=== PATIENT | male | born 1955 | race Caucasian/White ===

== ENCOUNTER → 2019-10-30 | Outpatient (CLI) | payer OTHER ==
--- NOTE | 2019-10-30 18:32 | US ---
EXAMINATION TYPE: US scrotum with doppler. Grayscale and color Doppler Duplex imaging performed of t he scrotum. 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 Palpable lump right testicle x 1 month EXAM MEASUREMENTS: TESTICLES: Right Testicle: 4.2 x 2.5 x 3.1 cm Left Testicle: 3.9 x 2.5 x 2.8 cm EPIDIDYMIS HEAD: Right Epididymis: 1.2 x 1.4 x 1.7 cm Left Epididymis: 0.8 x 0.9 x 1.1 cm Doppler performed to assess for testicular vascularity; bilateral color flow and waveforms are seen. There is no evidence of testicular torsion. Presence of hydroceles: right 2.8cm, left 2.4cm Presence of varicoceles: prominent vessels posterior and superior to left testicle Right epididymis: 1.0 x 0.5 x 0.9cm cyst seen at patient's palpable area Testicular echotexture is homogenous and symmetric IMPRESSION: Right epididymal cyst corresponds to patient's palpable abnormality, there is a right and left small hydrocele
== END | disposition home or self-care (01) ==
LOC: RADUSWWP 16:34
PROVIDERS: ATTEND Family Medicine
DX: D29.4 Benign neoplasm of scrotum (principal); N50.3 Cyst of epididymis; N43.3 Hydrocele, unspecified
CPT/HCPCS: 76870; 93975

== ENCOUNTER → 2019-11-21 | Outpatient (CLI) | payer OTHER ==
--- NOTE | 2019-11-21 23:28 | XR ---
EXAMINATION TYPE: XR chest 2V DATE OF EXAM: 11/21/2019 CLINICAL HISTORY: Hypertension, smoker TECHNIQUE: Frontal and lateral views of the chest are obtained. COMPARISON: None FINDINGS: The cardiomediastinal silhouette is within normal limits for size. Pulmonary vasculature i s normal. There is no focal air space opacity, pleural effusion, or pneumothorax seen. The osseous st ructures are intact. IMPRESSION: No acute cardiopulmonary process.
== END | disposition home or self-care (01) ==
LOC: RADXRYALE 14:59
PROVIDERS: ATTEND Physician Assistant Medical
DX: I10 Essential (primary) hypertension (principal); F17.210 Nicotine dependence, cigarettes, uncomplicated
CPT/HCPCS: 71046

== ENCOUNTER → 2020-06-05 | Outpatient (CLI) | payer OTHER ==
--- NOTE | 2020-06-05 21:27 | CT ---
EXAMINATION TYPE: CT urogram wo/w con DATE OF EXAM: 06/05/2020 COMPARISON: None HISTORY: Microscopic hematuria. CT DLP: 1941.6 mGycm, Automated Exposure Control for Dose Reduction was Utilized. CONTRAST: CT scan of the abdomen and pelvis is performed with oral and without and with IV Contrast, patient in jected with 100 mL of Isovue M300. FINDINGS: There is an umbilical hernia containing fat. LUNG BASES: No significant abnormality is appreciated. LIVER/GB: Posterior right lobe of the liver shows a hypoechoic density which shows gradual stippled e nhancement over time measuring approximately 2.3 cm which I suspect represents hemangioma. Gallbladde r is unremarkable. PANCREAS: No significant abnormality is seen. SPLEEN: No significant abnormality is seen. ADRENALS: Some mild prominence of the left adrenal gland may be indicative of underlying hyperplasia, there may be an associated adenoma KIDNEYS: Left kidney shows a punctate nonobstructive calculus at the lower pole anteriorly measuring only 3 mm, probable cortical cyst is also present at the lower po le left kidney measuring approximately 8 to 9 mm. Cortical cyst is present at the midpole the right k idney measuring approximately 12 mm. There is an extrarenal pelvis on the left the kidneys enhance sy mmetrically. There is no evident obstruction. Right kidney measures approximately 11.6 cm, left kidne y measures approximately 13 cm. The ureters show normal course and caliber but are not entirely enhan juanjo. BOWEL: No significant abnormality is seen. PROSTATE/SEMINAL VESICLES: There is a slight inferior impression on the urinary bladder due to enlar ged prostate LYMPH NODES: No greater than 1cm abdominal or pelvic lymph nodes are appreciated. OSSEOUS STRUCTURES: Degenerative disc changes are present in the visualized spine, there is marked sc lerosis, loss of disc space, associated spondylosis especially at L2-3 greater towards the right of m idline, is a slight spinal curvature. Facet arthropathy changes are present at the lumbosacral juncti on. OTHER: No significant additional abnormality is seen. IMPRESSION: Nonobstructive left nephrolithiasis. Possible hemangioma within the liver. Probable xander ical cysts associated with the kidneys. Prostatic enlargement. Limitations as described. Additional f indings above.
== END ==
LOC: RADCTMAIN 15:36
PROVIDERS: ATTEND Urology
DX: N20.0 Calculus of kidney (principal); N40.0 Benign prostatic hyperplasia without lower urinary tract symptoms; R93.2 Abnormal findings on diagnostic imaging of liver and biliary tract
CPT/HCPCS: 74178; 74400; Q9967

== ENCOUNTER → 2023-02-24 | Outpatient (CLI) | payer MEDICARE ==
--- NOTE | 2023-02-24 09:27 | CTL ---
EXAMINATION TYPE: CT Low Dose Lung DATE OF EXAM ORDERED: 02/24/2023 HISTORY: 67-year-old male Z87.891 PERSONAL HISTORY OF NICOTINE DEPENDENCE. Current smoker with 50 pac k-year history. Lung cancer screening CT DLP: 109.[address] CTDI: 3.0 mGy Automated exposure control for dose reduction was used. SCREENING VISIT: Baseline COMPARISON: None TECHNIQUE: Low dose computed tomography scan was performed through the chest without contrast with co jhon and sagittal reconstructions. CT DIAGNOSTIC QUALITY: Satisfactory FINDINGS: Heart normal size without pericardial effusion. Mild three-vessel coronary calcifications. Aorta normal caliber with conventional arch vessel branching anatomy. Mild scattered atherosclerotic aortic calcifications. No thoracic lymph adenopathy by size criteria. Mildly enlarged caliber to the main right and left pulmonary arteries up to 2.8 cm existing underlyin g pulmonary arterial hypertension. * Numerous scattered additional calcified granulomas are present throughout the lungs. * A few pulmonary nodules measuring 4 mm and smaller are also present. * 6 mm subpleural pulmonary nodule right middle lobe, axial image 178. There is centrilobular groundglass nodularity in the upper lungs. Mild diffuse bronchial wall thicken ing. Minimal emphysematous changes in the upper lungs. Mild biapical pleural-parenchymal scarring. Visualized upper abdomen shows diffuse low-density thickening of the left adrenal gland. A couple sma ll splenules are noted. Bones: Mild degenerative disc disease throughout. IMPRESSION: 1. LungRADS 3, probably benign. A 6 mm pulmonary nodule right middle lobe on baseline screening. 2. Additional scattered tiny nodules measuring up to 4 mm on baseline screening. Additional changes c ompatible with prior granulomatous disease. 3. COPD with minimal emphysema. Centrilobular groundglass nodules in the upper lungs can be seen with smoking associated respiratory bronchiolitis. Recommend smoking cessation. CT LUNG RAD AND CT CHEST RECOMMENDATION: Lung-Rad 3 Probably Benign: 6 month follow-up LDCT. S Modifier (other clinically significant findings): None
== END | disposition home or self-care (01) ==
LOC: RADCTMAIN 07:52
PROVIDERS: ATTEND Family Medicine
DX: Z12.2 Encounter for screening for malignant neoplasm of respiratory organs (principal); F17.210 Nicotine dependence, cigarettes, uncomplicated; J43.9 Emphysema, unspecified; J44.9 Chronic obstructive pulmonary disease, unspecified; R91.8 Other nonspecific abnormal finding of lung field
CPT/HCPCS: 71271

== ENCOUNTER → 2023-09-22 | Outpatient (CLI) | payer MEDICARE ==
--- NOTE | 2023-09-22 11:58 | CTL ---
EXAMINATION TYPE: CT Low Dose Lung DATE OF EXAM ORDERED: 09/22/2023 HISTORY: . Low Dose CT Lung Screening CT DLP: 114.[address] CTDI: 3.2 mGy IV CONTRAST USED: None. SCREENING VISIT: First visit COMPARISON: 02/25/2020 TECHNIQUE: Low dose computed tomography scan was performed through the chest at 1 millimeter thick se ctions and reconstructed images in the coronal plane at [address] DIAGNOSTIC QUALITY: Satisfactory FINDINGS: LUNG NODULES: 5 mm pleural-based right middle lobe pulmonary nodule image 186. Small pleural-based gr anuloma image 187. Small granuloma calcified left lower lobe 228 measuring 4 mm. LUNGS: COPD: Severity: Mild Fibrosis: Severity:None Lymph nodes: None Other findings: None RIGHT PLEURAL SPACE: Effusion: None Calcification: None Thickening: None Pneumothorax: None LEFT PLEURAL SPACE: Effusion: None Calcification: None Thickening: None Pneumothorax: None HEART: Heart Size: Mildly enlarged Coronary calcification: Mild Pericardial effusion: None OTHER FINDINGS: Upper abdomen: No significant abnormality Bony thorax: Degenerative changes Supraclavicular region: No significant abnormalityOther: No significant abnormalityI IMPRESSION: No clinically significant nodules greater than 6 mm. Findings are likely related to remot e granulomatous disease. FOLLOW UP CT CHEST RECOMMENDATION: Follow-up screening in one year CT LUNG RAD: LUNG RAD CATEGORY 2 benign appearance and/or behavior
== END | disposition home or self-care (01) ==
LOC: RADCTMAIN 11:15
PROVIDERS: ATTEND Family Medicine
DX: Z12.2 Encounter for screening for malignant neoplasm of respiratory organs (principal); R91.1 Solitary pulmonary nodule; F17.210 Nicotine dependence, cigarettes, uncomplicated
CPT/HCPCS: 71271